=== PATIENT | female | born 1970 | race Caucasian/White ===

== ENCOUNTER 2018-10-23 10:57 | Day surgery (SDC) | payer OTHER ==
[~2018-10-23 10:57] MED LIST: Lactated Ringers 1,000 ML IV ONE; Sensorcaine 0.25% 10 ML ONE
[2018-10-23] MEDS ORDERED: Lactated Ringers 1,000 ML IV SCH (12:00)
[2018-10-23] MEDS ORDERED: MEFOXIN 2 GM PREMIX** 2 GM/50 ML ML IV SCH (12:00)
[2018-10-23 12:37] LABS: BLOOD UREA NITROGEN 16 mg/dL (7-17); CHLORIDE 109 mmol/L (98-107); Calcium 9.2 mg/dL (8.4-10.2); Carbon Dioxide 26 mmol/L (22-30); Creatinine 1 0.79 mg/dL (0.52-1.04); Glucose 87 mg/dL (74-106); Potassium 4.2 mmol/L (3.5-5.1); SODIUM 141 mmol/L (137-145)
[2018-10-23] MEDS ORDERED: DIPRIVAN 200 MG/20 ML IV ONE (15:14)
[2018-10-23] MEDS ORDERED: Versed 2 MG/2 ML Injection ONE (15:14)
[2018-10-23] MEDS ORDERED: Zemuron 100 MG/10 ML ONE (15:14)
[2018-10-23] MEDS ORDERED: SUBLIMAZE 250 MCG/5 ML ONE (15:14)
[2018-10-23] MEDS ORDERED: TORAdol 30 mg Injection ONE (15:57)
[2018-10-23] MEDS ORDERED: BRIDION 200MG/2ML IV ONE (15:57)
[2018-10-23] MEDS ORDERED: SUBLIMAZE 100 MCG/2 ML ONE (16:20)
[2018-10-23] MEDS ORDERED: DILAUDID 2 MG INJECTION ONE (16:21)
[2018-10-23 18:01] VITALS: O2SAT 100
[2018-10-23 18:03] VITALS: BP 141/81; PULSE 62
--- NOTE | 2018-10-24 08:04 | OP ---
SURGERY DATE/TIME: 10/23/2018 1515 PREOPERATIVE DIAGNOSES: 1) Dyskinesia. 2) Umbilical hernia symptomatic. POSTOPERATIVE DIAGNOSES: 1) Dyskinesia. 2) Umbilical hernia symptomatic. PROCEDURES: 1) Laparoscopic cholecystectomy. 2) Primary repair of umbilical hernia. SURGEON: Dr. Bhatt. ANESTHESIA: General. COMPLICATIONS: None. CONDITION: Stable. INDICATIONS: A patient with these two problems. DESCRIPTION OF PROCEDURE AND FINDINGS: Taken to surgery. General anesthetic, routine prep and drape. The 5 port was placed through umbilical hernia. Three additional ports. Good visualization. Cystic duct defined. Cystic artery defined. Both structures triply clipped and transected. Clips noted across and well approximated. Gallbladder rolled out of gallbladder fossa. The gallbladder delivered through umbilical hernia defect. Umbilical hernia defect sac was isolated. Fascia was closed with running 0 Prolene. Satisfactory approximation repair. The sac was sent to pathology. Skin closed with 4-0 Vicryl and Steri-Strips. The patient tolerated the procedure satisfactorily.
== END 2018-10-23 17:30 | disposition home or self-care (01) ==
LOC: SDC 10:57
PROVIDERS: ATTEND Surgery
DX: K82.8 Other specified diseases of gallbladder (principal); K42.9 Umbilical hernia without obstruction or gangrene; I10 Essential (primary) hypertension; Z79.899 Other long term (current) drug therapy
CPT/HCPCS: 36415; 80048; J0694; J1170; J1885; J2250; J2704; J3010